=== PATIENT | male | born 1980 | race Caucasian/White ===

== ENCOUNTER 2017-08-31 19:49 | Emergency (ER) | payer SELFPAY ==
[2017-08-31 19:57] VITALS: BP 106/60; BMI 22.4
--- NOTE | 2017-08-31 20:30 | DR.GENAD ---
HPI - PCP Primary Care Physician: NFD - Complaint/Symptoms Chief Complaint Doctors Comments: 37 y/o male presenting with complain of pain in the left foot. He denies associated trauma. He states he moved out of [place], he had taken the bus and walked some. [place] that he must have walked about 100 miles recently. He denies noting blisters on the feet. He just wants to makke sure tht they are not broken.. Chief Complaint:: PT STATES" I MIGHT NEED A BRACE ON MY RT FOOT AND LT FOOT CAUSE THEY MIGHT BE BROKE" - Nurses notes reviewed Nurses Notes Review: Yes - Source History Provided: Patient - Mode of Arrival Mode of Arrival: EMS - Timing Onset of Chief Complaint: 08/31/17 Came on: Gradually - Modifying Factors Worsens:: weight bearing PMH - PMH Past Medical History: Yes Past Medical History: Schizophrenia Past Surgical History: No - Family History History of Family Medical Conditions: No - Social History Does patient currently use any type of tobacco product: Yes Have you used tobacco products in the last 12 months: Yes Type of Tobacco Use: Cigarettes Packs per day or dips/chews per day: 1/2 Does any household member use tobacco: No Alcohol Use: None Do you use any recreational Drugs:: No Lives With: Alone, Family Lives Where: Homeless - infectious screening In the last 2 months have you had wt loss of >10#?: NO Have you had fever, night sweats or hemotysis?: No Have you traveled outside the country in the last 6 months?: No Isolation: Standard ROS - Review of Systems Constitutional: No Symptoms Reported Eyes: No Symptoms Reported ENTM: No Symptoms Reported Respiratoy: No Symptoms Reported Cardiovascular: No Symptoms Reported Gastrointestinal/Abdominal: No Symptoms Reported Genitourinary: No Symptoms Reported Neurological: No Symptoms Reported Musculoskeletal: Right, Left, Foot Integumentary: No Symptoms Reported Hematologic/Lymphatic: No Symptoms Reported Endocrine: No Symptoms Reported Psychiatric: No Symptoms Reported All Other Systems: Reviewed and Negative PE - Vital Signs Vitals: Temperature 97.2 F Pulse Rate 68 Respiratory Rate 16 Blood Pressure 106/60 O2 Sat by Pulse Oximetry 97 - General Limitations: No Limitations General Appearance: Alert, In No Apparent Distress - Head Head Exam: Normal Inspection - Eyes Eye exam: Normal Appearance, PERRL, EOMI - ENT ENT Exam: Normal Exam - Neck Neck Exam: Normal Inspection, Full ROM, Trachea Midline - Chest Chest Inspection: Normal Inspection - Respiratory Respiratory Exam: Normal Lung Sounds Bilat - Cardiovascular Cardiovascular Exam: Regular Rate, Normal Rhythm - Abdominal Exam Abdominal Exam: Normal Inspection, Normal Bowel Sounds, Soft - Extremities Extremities Exam: Normal Inspection, Full ROM. negative: Tenderness, Normal Capillary Refill, Edema, Joint Swelling, Calf Tenderness - Back Back Exam: Normal Inspection - Neurologic Neurological Exam: Alert, Oriented X3, CN II-XII Intact - Psychiatric Psychiatric Exam: Normal Affect, Normal Mood - Skin Skin Exam: Warm, Dry, Intact Course - Education/Counseling Education/Counseling: Patient, Family Educated On: Treatment, Diagnosis, Prognosis, Needs for Follow Up ROR - XRAY XRAY Interpreted by: Radiologist (rt. foot: mild flattening and subchondral sclerosis of the 2nd metatarsal head, suggestive for osteosclerosis with mild subchondral collapse. no acute radiographic abnormality otherwise seen. Left foot: no acute radiographic abnormality. ) - Diagnosis Discharge Problem: Pain in both feet - Discharge Plan Disposition: 01 HOME, SELF-CARE Condition: Stable - Follow ups/Referrals Follow ups/Referrals: NFD,None [Primary Care Provider] - 3 days - Instructions
--- NOTE | 2017-08-31 21:04 | RAD ---
Left foot, three views Indication: Foot pain after walking Comparison: None Findings: No acute fracture or malalignment is identified. Joint spaces are preserved without signifi cant arthropathy. Soft tissues are unremarkable. Impression: No acute radiographic abnormality of the left foot. Reported By:
--- NOTE | 2017-08-31 21:07 | RAD ---
Right foot, three views Indication: Foot pain after walking Comparison: None Findings: There is mild flattening and subchondral sclerosis of the 2nd metatarsal head. No acute fra cture or malalignment is otherwise identified. Joint spaces are preserved without significant arthrop athy. Surrounding soft tissues are unremarkable. 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 Otherwise, no acute radiographic abnorma lity of the right foot. Reported By:
== END 2017-08-31 21:35 | disposition home or self-care (01) ==
LOC: ER 19:49
DX: M79.672 Pain in left foot (principal); M79.671 Pain in right foot
CPT/HCPCS: 73630; 99282